=== PATIENT | male | born 1990 | race African-American/Black ===

== ENCOUNTER 2017-04-16 09:57 | Emergency (ER) | payer SELFPAY ==
[~2017-04-16] VITALS: Ht 190.5 cm; Wt 86.4 kg
[2017-04-16 10:10] VITALS: BP 124/84
[2017-04-16] MEDS ORDERED: KETOROLAC TROMETHAMINE 60 MG/2 ML VIAL IM ONE (10:45)
[2017-04-16] MEDS ORDERED: METHOCARBAMOL 500 MG TABLET PO ONE (10:45)
== END 2017-04-16 11:13 | disposition home or self-care (01) ==
LOC: EMS 09:57
DX: M54.5 Low back pain (principal); F12.90 Cannabis use, unspecified, uncomplicated; F17.210 Nicotine dependence, cigarettes, uncomplicated; V43.62XA Car passenger injured in collision with other type car in traffic accident, initial encounter; Y93.89 Activity, other specified; Y92.89 Other specified places as the place of occurrence of the external cause; Y99.8 Other external cause status
CPT/HCPCS: 96372; 99283; J1885

== ENCOUNTER 2017-05-11 10:21 | Emergency (ER) | payer SELFPAY ==
[~2017-05-11] VITALS: Ht 190.5 cm; Wt 86.4 kg
[2017-05-11] MEDS ORDERED: HYDROCODONE/ACETAMINOPHEN 10-325 MG TABLET PO ONE (10:45)
[2017-05-11] MEDS ORDERED: KETOROLAC TROMETHAMINE 60 MG/2 ML VIAL IM ONE (10:45)
[2017-05-11 11:35] VITALS: BP 145/68
== END 2017-05-11 11:40 | disposition home or self-care (01) ==
LOC: EMS 10:25
DX: K04.7 Periapical abscess without sinus (principal); K02.9 Dental caries, unspecified; F17.210 Nicotine dependence, cigarettes, uncomplicated
CPT/HCPCS: 96372; 99283; J1885